=== PATIENT | male | born 1985 | race Caucasian/White ===

== ENCOUNTER 2016-10-30 13:46 | Emergency (ER) | payer MEDICAID ==
--- NOTE | ~2016-10-30 | CR63 ---
[facility]. [facility] A Service of [facility] & [facility] RADIOLOGY TEXT RESULTS PATIENT: KEVIN BORJAS LOCATION: SED : 83 UNIT #: [id number] AGE: [address]: Julio César Kwon MD SEX: M ORDER DR: [id number] [place] [id number] E MR#: [id number] Acc #: [id number] NAME: KEVIN BORJAS : 1985 SEX: M STUDY DATE/TIME: 10/30/2016 14:40 UNIT: SED ROOM: STUDY DESCRIPTION: CR Chest 2 View Attending Physician: Julio César Kwon M.D. Referring Physician: Julio César Kwon M.D. Ordering Physician: Julio César Kwon M.D. Primary Care Physician: Primary Care Physician No MEDICAL IMAGING REPORT This report is preliminary unless electronic signature is present. EXAM PA and lateral chest INDICATION Sore throat, abdominal pain and vomiting blood. Presents to the ER with these symptoms today. COMPARISON 05/29/2016 FINDINGS Lungs are well expanded and clear. Heart size is normal. The visualized osseous structures are unremarkable. IMPRESSION Negative chest. Dictated by... Amarjit Tapia M.D. THIS IS AN ELECTRONICALLY VERIFIED REPORT Amarjit Tapia M.D. at 10/31/2016 9:05 AM Adelaida TD: 10/30/2016 16:27 JOB #: [id number] MEDICAL IMAGING REPORT Page 1 of 1
[2016-10-30] MEDS ORDERED: NO MEDICATIONS (13:48)
[2016-10-30 14:44] LABS: BASOPHIL% 0.3 % (0-2.5); EOSINOPHIL# 0.1 X10e3 (0-0.7); EOSINOPHIL% 0.8 % (0.0-7.0); HEMATOCRIT 36.9 % (38.0-50.0); HEMOGLOBIN 12.6 gm/dL (13.0-16.0); LYMPHOCYTE# 1.8 X10e3 (1.0-3.5); LYMPHOCYTE% 22.4 % (17.0-45.0); MEAN CELL VOLUME 85.8 FL (83-96); MEAN CORPUSCULAR HEMOGLOBIN 29.2 PG (28-34); MEAN PLATELET VOLUME 8.4 FL (6.5-11.5); MONOCYTE# 0.6 X10e3 (0-1.0); MONOCYTE% 7.3 % (3.0-12.0); NEUTROPHIL# 5.4 X10e3 (1.5-7.1); NEUTROPHIL% 69.2 % (40-75); PLATELET COUNT 204 X10e3 (140-420); RED CELL DISTRIBUTION WIDTH 13.9 % (11.0-15.5); WHITE BLOOD COUNT 7.8 X10e3 (4.0-10.5)
[2016-10-30 14:45] LABS: DIFF IND NO
[2016-10-30 14:56] LABS: INR 1.1; PROTHROMBIN TIME (PATIENT) 12.3 SECONDS (9.5-12.4)
[2016-10-30 15:03] LABS: PARTIAL THROMBOPLASTIN TIME 30.9 SECONDS (25.6-38.1)
[2016-10-30 15:06] LABS: ALBUMIN SERUM 4.2 g/dL (3.5-5.0); BILIRUBIN, DIRECT 0.1 mg/dL (0.0-0.2); BILIRUBIN,INDIRECT 0.2 mg/dL (0.0-0.9); BILIRUBIN,TOTAL 0.3 mg/dL (0.2-2.0); BUN/CREATININE RATIO 13.75; CALCIUM SERUM 9.5 mg/dL (8.4-10.2); CREATININE SERUM 0.8 mg/dL (0.6-1.4); GLOM FILT RATE Estimated 118.2 mL/min (>60); POTASSIUM 3.6 mmol/L (3.5-5.1); PROTEIN TOTAL SERUM 7.2 g/dL (6.0-8.3)
[2016-10-30 15:10] LABS: DDIMER <200 NG/ML (0-200)
== END 2016-10-30 15:48 | disposition home or self-care (01) ==
LOC: SED 13:46
PROVIDERS: Emergency Medicine
DX: J02.9 Acute pharyngitis, unspecified (principal); J20.9 Acute bronchitis, unspecified; F17.210 Nicotine dependence, cigarettes, uncomplicated
CPT/HCPCS: 36415; 71020; 80048; 80076; 82150; 83690; 85025; 85379; 85610; 85730; 87651; 99283